=== PATIENT | male | born 2005 ===

== ENCOUNTER 2023-08-03 00:09 | Emergency (ER) | payer SELFPAY ==
[~2023-08-03] VITALS: Ht 172.7 cm; Wt 68.0 kg
[2023-08-03 00:37] LABS: BASOPHILS ABSOLUTE AUTO 0.04 K/mm3 (0.00-0.31); BASOPHILS PERCENT AUTO 1 % (0-2); EOSINOPHILS ABSOLUTE AUTO 0.28 K/mm3 (0.00-0.78); EOSINOPHILS PERCENT AUTO 4 % (0-5); Hematocrit 38.9 % (34.0-40.0); IMMATURE GRAN ABSOLUTE AUTO 0.03 K/mm3 (0.00-0.10); IMMATURE GRAN PERCENT AUTO 1 % (0-1); LYMPHOCYTES ABSOLUTE AUTO 3.03 K/mm3 (1.90-9.61); LYMPHOCYTES PERCENT AUTO 47 % (38-62); MONOCYTES ABSOLUTE AUTO 0.58 K/mm3 (0.10-1.86); MONOCYTES PERCENT AUTO 9 % (2-12); Mean Corpuscular HGB 31.2 pg (24.0-30.0); Mean Corpuscular HGB Conc 33.4 g/dL (31.0-36.5); Mean Corpuscular Volume 93 fL (75-87); Mean Platelet Volume 9.8 fL (9.1-12.4); NEUTROPHILS ABSOLUTE AUTO 2.43 K/mm3 (1.90-11.00); NEUTROPHILS PERCENT AUTO 38 % (30-63); Platelet Count 181 K/mm3 (150-450); RDW Coefficient Variation 11.8 % (11.5-15.0); RDW Standard Deviation 40.3 fL (35.1-46.3); Red Blood Cell Count 4.17 M/mm3 (3.90-5.30); White Blood Cell Count 6.39 K/mm3 (5.00-15.50)
[2023-08-03 00:48] VITALS: BP 46/15
[2023-08-03 00:48] LABS: Alanine Aminotransfer (ALT/SGP 19 U/L (12-78); Albumin, Blood 3.3 g/dL (3.4-5.0); Alk Phos 62 U/L (134-386); Anion Gap 9 mmol/L (6-16); Aspartate Aminotrans (AST/SGOT 18 U/L (12-37); Bilirubin, Total 0.1 mg/dL (0.1-1.0); Blood Urea Nitrogen 15 mg/dL (7-17); Bun/Creatinine Ratio 13.9 (12.0-20.0); CO2, Blood 26 mmol/L (21-32); Calcium, Blood 8.4 mg/dL (8.5-10.1); Chloride, Blood 109 mmol/L (98-108); Creatinine, Blood 1.08 mg/dL (0.40-0.70); Ethanol (Alcohol), Blood, Med <3 mg/dL; Globulin, Blood 3.4 g/dL (2.2-4.0); Glucose, Blood 94 mg/dL (70-99); Potassium, Blood 4.2 mmol/L (3.5-5.5); Sodium, Blood 144 mmol/L (136-145); Total Protein, Blood 6.7 g/dL (6.4-8.2)
[2023-08-03 02:43] LABS: International Normalized Ratio 1.08; Prothrombin Time Results 11.3 Sec (9.7-11.5)
== END 2023-08-03 02:44 ==
LOC: ER 00:09 → EDBD 00:09 → ER 02:44
PROVIDERS: Emergency Medicine
DX: I46.9 Cardiac arrest, cause unspecified (principal); T79.4XXA Traumatic shock, initial encounter; S27.1XXA Traumatic hemothorax, initial encounter; S41.041A Puncture wound with foreign body of right shoulder, initial encounter; S71.131A Puncture wound without foreign body, right thigh, initial encounter; W34.00XA Accidental discharge from unspecified firearms or gun, initial encounter
CPT/HCPCS: 31500; 32551; 36430; 36620; 71045; 80053; 83690; 85025; 85610; 86850; 86900; 86901; 86920; 92950; 94002; 96374-59; 96375; 96375-59; 99285-25; J2310; J2704; J7060; P9016; P9059